=== PATIENT | female | born 1995 | race African-American/Black ===

== ENCOUNTER 2023-01-30 02:50 | Inpatient (IN) | payer OTHER ==
[2023-01-30] MEDS ORDERED: Nitroglycerin 2% Ointment 1 INCH/1 GM Packet ONE (03:14)
[2023-01-30] MEDS ORDERED: Nitroglycerin 50 MG/250 ML BOT 250 ML ONE (04:54)
[2023-01-30 05:07] LABS: Anion Gap 17 mmol/L (10-20); BUN (Urea Nitrogen) 32 mg/dL (7.0-18.7); Calc. Creatinine Clearance 0 mL/min (70-130); Calcium 7.2 mg/dL (7.8-10.44); Carbon Dioxide 23 mmol/L (22-29); Chloride 107 mmol/L (98-107); Estimated GFR 16; Glucose 188 mg/dL (70-105); Magnesium 1.6 mg/dL (1.6-2.6); Sodium 145 mmol/L (136-145)
[2023-01-30] MEDS ORDERED: Magnesium 2 GM/50 ML BAG (IN WATER) ONE (05:15)
[2023-01-30 05:33] LABS: Troponin I 0.773 ng/mL (< 0.028)
[2023-01-30 05:34] LABS: Potassium 2.2 mmol/L (3.5-5.1)
[2023-01-30] MEDS ORDERED: Potassium Chloride 20 MEQ/100 ML PREMIX BAG ONE (06:21)
[2023-01-30] MEDS ORDERED: Acetaminophen 325 MG TAB PO PRN (06:30)
[2023-01-30] MEDS ORDERED: Ondansetron PF 4 MG/2 ML Vial IVP PRN (06:30)
[2023-01-30] MEDS ORDERED: Potassium Chloride 20 MEQ TAB ONE (06:40)
[2023-01-30 06:45] LABS: #Basophils 0.1 thou/uL (0.0-0.2); #Monocytes 1.1 thou/uL (0.11-0.59); #Neutrophils 11.3 thou/uL (1.40-6.50); %Basophils 0.4 % (0.0-1.0); %Lymphocytes 10.7 % (21.0-51.0); %Neutrophils 80.5 % (42.0-75.0); Hematocrit 24.2 % (36.0-47.0); Hemoglobin 7.7 g/dL (12.0-16.0); Mean Corpuscular HGB CONC 31.8 g/dL (32.0-36.0); Mean Corpuscular Hemoglobin 26.7 pg (27.0-31.0); Mean Platelet Volume 9.8 fL (7.4-10.4); Platelet Count 472 10x3/uL (130-400); Red Blood Cell (RBC) Count 2.88 mill/uL (4.20-5.40)
[2023-01-30 07:24] LABS: Hemoglobin A1c 5.9 % (4.0-6.0)
[2023-01-30] MEDS ORDERED: Nitroglycerin 50 MG/250 ML BOT 250 ML IVPB SCH (07:30)
[2023-01-30 07:49] LABS: Cardiac Risk 7.5 (Less than 4.5)
[2023-01-30] MEDS ORDERED: niCARdipine 25 MG in Sodium Chloride 0.9% 250 ML 250 ML IVPB SCH (09:00)
[2023-01-30] MEDS ORDERED: NIFEdipine XL 60 MG ER.TAB PO SCH (09:00)
[2023-01-30 09:06] LABS: Amphetamine Not Detected (NotDetected); Barbiturates Screen Not Detected (NotDetected); Benzodiazepine Screen Not Detected (NotDetected); Cocaine Metabolite Screen Not Detected (NotDetected); Methadone Not Detected (NotDetected); Methamphetamine Not Detected (NotDetected); Opiate Screen Not Detected (NotDetected); Oxycodone Screen Not Detected (NotDetected); Phencyclidine (PCP) Not Detected (NotDetected); THC/Cannabinoid Screen Not Detected (NotDetected); Tricyclic Screen Not Detected (NotDetected)
[2023-01-30] MEDS ORDERED: FLU VACC QS2023-24(6MOS UP)/PF 60 MCG/0.5 ML SYRINGE IM ONE (09:45)
[2023-01-30 09:48] LABS: INR-International Normal Ratio 1.2; PTT 42.8 sec (22.9-36.1); Prothrombin Time 16.1 sec (12.0-14.7)
[2023-01-30 09:56] LABS: Iron 12 ug/dL (50-170); Iron Binding Capacity, Total 150 mcg/dL (265-497)
[2023-01-30 09:58] LABS: Complement-C4 43.1 mg/dL (15-57)
[2023-01-30 10:10] LABS: Troponin I 1.559 ng/mL (< 0.028)
[2023-01-30] MEDS ORDERED: Carvedilol 6.25 MG TAB PO SCH ×2 (10:30→17:00)
[2023-01-30 10:34] LABS: Creatinine, Urine 38.92 mg/dL (47-110)
[2023-01-30 11:07] LABS: Reference Lab Name LABCORP
[2023-01-30 11:08] LABS: Ref Lab Test Ordered ESR
[2023-01-30 11:16] LABS: Anion Gap 19 mmol/L (10-20); BUN (Urea Nitrogen) 33 mg/dL (7.0-18.7); Calc. Creatinine Clearance 37 mL/min (70-130); Carbon Dioxide 20 mmol/L (22-29); Chloride 107 mmol/L (98-107); Estimated GFR 16; Glucose 185 mg/dL (70-105); Sodium 144 mmol/L (136-145)
[2023-01-30 11:24] LABS: Calcium 6.9 mg/dL (7.8-10.44); Potassium 2.3 mmol/L (3.5-5.1)
[2023-01-30] MEDS ORDERED: Potassium Chloride 20 MEQ TAB PO SCH ×2 (11:45→17:00)
[2023-01-30 11:48] LABS: ANA Symphony (Qualitative) Negative (Negative); ANA Symphony (Quantitative) 0.4 Ratio (< 0.7 Negative); Mitochondrial Ab 2.6 U/mL (<4 Negative); Thyroid Peroxidase IgG Ab Less than 4.0 IU/mL (<25 Normal); dsDNA IgG Antibody 0.6 IU/mL (<10 Negative)
[2023-01-30] MEDS: Potassium Chloride 20 MEQ in Premix Bag 1 BAG IVPB SCH ×3 (11:56→17:27)
[2023-01-30 11:59] LABS: Free T4 (Free Thyroxine) 1.02 ng/dL (0.70-1.48); Thyroid Stimulating Hormone 3.3401 uIU/mL (0.35-4.94)
[2023-01-30 12:37] LABS: Troponin I 1.324 ng/mL (< 0.028)
[2023-01-30] MEDS ORDERED: Spironolactone 100 MG TAB PO SCH (12:45)
[2023-01-30] MEDS ORDERED: Magnesium 2 GM/50 ML(in water) 2 GM in Premix Bag 1 BAG IVPB SCH (13:00)
[2023-01-30] MEDS ORDERED: Glucagon 1 MG/ML KIT IM PRN (13:01)
[2023-01-30] MEDS ORDERED: HumaLOG 300 UNITS/3 ML VIAL SC PRN (13:01)
[2023-01-30] MEDS ORDERED: Dextrose 5% in Water 1,000 ML IV PRN (13:01)
[2023-01-30] MEDS ORDERED: Dextrose 50% Abboject 50 ML SYRINGE SLOW IVP PRN (13:01)
[2023-01-30 13:10] LABS: ALT (SGPT) 33 U/L (8-55); AST (SGOT) 48 U/L (5-34); Alkaline Phosphatase 112 U/L (40-110); Magnesium 1.8 mg/dL (1.6-2.6)
[2023-01-30 13:29] LABS: Phosphorus 5.5 mg/dL (2.3-4.7)
[2023-01-30] MEDS ORDERED: Furosemide 40 MG/4 ML VIAL SLOW IVP SCH ×2 (14:00→17:20)
[2023-01-30] MEDS ORDERED: Polyethylene Glycol 3350 17 GM Packet PO PRN (16:11)
[2023-01-30 16:27] LABS: Hematocrit 20.1 % (36.0-47.0); Hemoglobin 6.5 g/dL (12.0-16.0)
[2023-01-30] MEDS: Docusate 100 MG CAP PO PRN (16:35)
[2023-01-30 16:50] LABS: Anion Gap 14 mmol/L (10-20); BUN (Urea Nitrogen) 34 mg/dL (7.0-18.7); Calc. Creatinine Clearance 36 mL/min (70-130); Carbon Dioxide 23 mmol/L (22-29); Chloride 108 mmol/L (98-107); Estimated GFR 16; Glucose 182 mg/dL (70-105); Phosphorus 5.4 mg/dL (2.3-4.7); Sodium 142 mmol/L (136-145)
[2023-01-30 16:54] LABS: Calcium 6.8 mg/dL (7.8-10.44)
[2023-01-30] MEDS ORDERED: Potassium Chloride 20 MEQ in Premix Bag 1 BAG IVPB SCH (17:00)
[2023-01-30] MEDS ORDERED: Metolazone 5 MG TAB PO SCH (17:30)
[2023-01-30] MEDS: Furosemide 100 MG, Admixture Fee 1 EACH in Sodium Chloride 0.9% 90 ML IVPB SCH (18:57)
[2023-01-30] MEDS: Albumin 25% 25 GM/100 ML BOT IVPB SCH (18:57)
[2023-01-30] MEDS: Potassium Chloride 20 MEQ TAB PO SCH (21:30)
[2023-01-30] MEDS: Heparin 5,000 UNITS/ML VIAL SC SCH (21:31)
[2023-01-30] MEDS: Insulin Glargine 30 UNITS/0.3 ML VIAL SC SCH (21:48)
[2023-01-31] MEDS: Potassium Chloride 20 MEQ TAB PO SCH ×6 (00:38→20:33)
[2023-01-31] MEDS: Albumin 25% 25 GM/100 ML BOT IVPB SCH ×3 (00:38→11:03)
[2023-01-31 01:22] LABS: #Basophils 0.1 thou/uL (0.0-0.2); #Monocytes 1.3 thou/uL (0.11-0.59); #Neutrophils 9.7 thou/uL (1.40-6.50); %Basophils 0.4 % (0.0-1.0); %Eosinophils 0.1 % (0.0-10.0); %Lymphocytes 16.8 % (21.0-51.0); %Monocytes 9.8 % (0.0-10.0); %Neutrophils 72.4 % (42.0-75.0); Hematocrit 21.8 % (36.0-47.0); Hemoglobin 7.2 g/dL (12.0-16.0); Mean Corpuscular Hemoglobin 26.6 pg (27.0-31.0); Mean Platelet Volume 9.5 fL (7.4-10.4); Platelet Count 345 10x3/uL (130-400); RBC Distribution Width 15.2 % (11.5-14.5); Red Blood Cell (RBC) Count 2.71 mill/uL (4.20-5.40); White Blood Cell (WBC) Count 13.3 10x3/uL (4.8-10.8)
[2023-01-31 01:46] LABS: Mean Corpuscular Volume 80.4 fl (78.0-98.0)
[2023-01-31 06:17] LABS: #Basophils 0.1 thou/uL (0.0-0.2); #Monocytes 1.4 thou/uL (0.11-0.59); #Neutrophils 9.5 thou/uL (1.40-6.50); %Basophils 0.4 % (0.0-1.0); %Eosinophils 0.1 % (0.0-10.0); %Lymphocytes 19.4 % (21.0-51.0); %Monocytes 9.9 % (0.0-10.0); %Neutrophils 69.8 % (42.0-75.0); Hemoglobin 7.2 g/dL (12.0-16.0); Mean Corpuscular HGB CONC 32.7 g/dL (32.0-36.0); Mean Corpuscular Hemoglobin 26.5 pg (27.0-31.0); Mean Corpuscular Volume 80.9 fl (78.0-98.0); Mean Platelet Volume 9.9 fL (7.4-10.4); Platelet Count 349 10x3/uL (130-400); RBC Distribution Width 15.7 % (11.5-14.5); Red Blood Cell (RBC) Count 2.72 mill/uL (4.20-5.40); White Blood Cell (WBC) Count 13.6 10x3/uL (4.8-10.8)
[2023-01-31 06:37] LABS: INR-International Normal Ratio 1.3; PTT 32.6 sec (22.9-36.1)
[2023-01-31 06:41] LABS: ALT (SGPT) 85 U/L (8-55); AST (SGOT) 139 U/L (5-34); Albumin 3.2 g/dL (3.5-5.0); Alkaline Phosphatase 93 U/L (40-110); Anion Gap 14 mmol/L (10-20); BUN (Urea Nitrogen) 37 mg/dL (7.0-18.7); Bilirubin, Total 0.6 mg/dL (0.2-1.2); Calc. Creatinine Clearance 34 mL/min (70-130); Calcium 7.5 mg/dL (7.8-10.44); Carbon Dioxide 25 mmol/L (22-29); Chloride 109 mmol/L (98-107); Estimated GFR 15; Globulin 2.6 g/dL (2.4-3.5); Glucose 155 mg/dL (70-105); Magnesium 2.1 mg/dL (1.6-2.6); Potassium 3.2 mmol/L (3.5-5.1); Protein, Total 5.8 g/dL (6.0-8.3); Sodium 145 mmol/L (136-145)
[2023-01-31 06:43] LABS: Phosphorus 5.7 mg/dL (2.3-4.7)
[2023-01-31] MEDS ORDERED: NIFEdipine XL 60 MG ER.TAB PO SCH ×2 (07:39→09:00)
[2023-01-31] MEDS ORDERED: Carvedilol 6.25 MG TAB PO SCH (08:00)
[2023-01-31] MEDS: Calcitriol 0.25 MCG CAP PO SCH (09:29)
[2023-01-31] MEDS: Spironolactone 100 MG TAB PO SCH (09:30)
[2023-01-31] MEDS: Heparin 5,000 UNITS/ML VIAL SC SCH ×2 (09:31→20:31)
[2023-01-31] MEDS: Carvedilol 25 MG TAB PO SCH ×2 (09:31→20:32)
[2023-01-31] MEDS: Iron, Sodium Ferric Gluconate 250 MG in Sodium Chloride 0.9% 250 ML 250 ML IVPB SCH (09:48)
[2023-01-31] MEDS: Furosemide 100 MG, Admixture Fee 1 EACH in Sodium Chloride 0.9% 90 ML IVPB SCH (09:49)
[2023-01-31] MEDS ORDERED: niCARdipine 50 MG, Admixture Fee 1 EACH in Sodium Chloride 0.9% 250 ML 230 ML IV SCH (10:00)
[2023-01-31] MEDS ORDERED: Pantoprazole 40 MG VIAL IVP SCH (10:15)
[2023-01-31] MEDS: Ergocalciferol 1.25 MG(50,000 UNITS) CAP PO SCH (11:03)
[2023-01-31] MEDS ORDERED: Heparin 10,000 UNITS/ 10 ML VIAL ONE (11:47)
[2023-01-31 14:24] LABS: Bacteria/HPF None Seen HPF (None Seen); Bilirubin Negative (Negative); Blood, Urine 3+ (Negative); Clarity Clear (Clear); Glucose, Urine (Dipstick) 100 mg/dL (Negative); Ketone, Urine Negative (Negative); Leukocyte Negative Leu/uL (Negative); Nitrite Negative (Negative); Protein, Urine (Dipstick) 300 mg/dL (Neg-Trace); Specific Gravity, Urine 1.013 (1.002-1.036); Squamous Epithelial 0-3 HPF (0-3); Urobilinogen Normal mg/dL (Less than 2)
[2023-01-31 14:47] LABS: HBSAB Concentration Less than 8.00 mIU/mL; HBSAg Index 0.32 S/CO (0-0.99); Hep B Core Total Ab Non-Reactive (NonReactive); Hep B Core Total Index 0.09 S/CO (0-0.79); Hep B Surf AB Non-Reactive (NonReactive); Hep B Surf Ag Non-Reactive S/CO (NonReactive); Hep C IgG Ab Non-Reactive S/CO (NonReactive); Hep C Index 0.08 S/CO (0-0.79)
[2023-01-31 14:51] LABS: 24 Hr Creatinine 648.56 mg/24 hr (710-1650); Creatinine, Urine 58.96 mg/dL (47-110)
[2023-01-31] MEDS ORDERED: Furosemide 100 MG, Admixture Fee 1 EACH in Sodium Chloride 0.9% 90 ML IVPB SCH (14:58)
[2023-01-31] MEDS ORDERED: Metolazone 5 MG TAB PO SCH (15:00)
[2023-01-31] MEDS: Insulin Glargine 30 UNITS/0.3 ML VIAL SC SCH (20:31)
[2023-02-01 04:34] LABS: %Basophils 0.3 % (0.0-1.0); %Eosinophils 0.1 % (0.0-10.0); %Lymphocytes 18.2 % (21.0-51.0); %Monocytes 7.9 % (0.0-10.0); %Neutrophils 72.9 % (42.0-75.0); Hematocrit 19.8 % (36.0-47.0); Hemoglobin 6.4 g/dL (12.0-16.0); Mean Corpuscular HGB CONC 32.3 g/dL (32.0-36.0); Mean Corpuscular Hemoglobin 26.6 pg (27.0-31.0); Mean Corpuscular Volume 82.2 fl (78.0-98.0); Mean Platelet Volume 9.8 fL (7.4-10.4); Platelet Count 332 10x3/uL (130-400); RBC Distribution Width 15.5 % (11.5-14.5); Red Blood Cell (RBC) Count 2.41 mill/uL (4.20-5.40); White Blood Cell (WBC) Count 12.3 10x3/uL (4.8-10.8)
[2023-02-01 05:02] LABS: ALT (SGPT) 54 U/L (8-55); AST (SGOT) 50 U/L (5-34); Albumin 2.5 g/dL (3.5-5.0); Alkaline Phosphatase 101 U/L (40-110); Anion Gap 13 mmol/L (10-20); BUN (Urea Nitrogen) 27 mg/dL (7.0-18.7); Bilirubin, Total 0.5 mg/dL (0.2-1.2); Calc. Creatinine Clearance 44 mL/min (70-130); Calcium 8.1 mg/dL (7.8-10.44); Carbon Dioxide 27 mmol/L (22-29); Chloride 109 mmol/L (98-107); Estimated GFR 20; Globulin 2.7 g/dL (2.4-3.5); Glucose 107 mg/dL (70-105); Magnesium 2.1 mg/dL (1.6-2.6); Potassium 3.5 mmol/L (3.5-5.1); Protein, Total 5.2 g/dL (6.0-8.3); Sodium 145 mmol/L (136-145)
[2023-02-01] MEDS ORDERED: Albumin 25% 25 GM/100 ML BOT IVPB SCH ×2 (07:15→23:45)
[2023-02-01] MEDS: Pantoprazole 40 MG VIAL IVP SCH (08:10)
[2023-02-01] MEDS: Heparin 5,000 UNITS/ML VIAL SC SCH ×2 (08:10→20:51)
[2023-02-01] MEDS ORDERED: Metolazone 5 MG TAB PO SCH (08:30)
[2023-02-01] MEDS: Iron, Sodium Ferric Gluconate 250 MG in Sodium Chloride 0.9% 250 ML 250 ML IVPB SCH (08:53)
[2023-02-01] MEDS ORDERED: Torsemide 100 MG TAB PO SCH (09:00)
[2023-02-01] MEDS: Carvedilol 25 MG TAB PO SCH ×3 (10:12→17:28)
[2023-02-01] MEDS: Calcitriol 0.25 MCG CAP PO SCH (10:12)
[2023-02-01] MEDS: Spironolactone 100 MG TAB PO SCH (10:13)
[2023-02-01] MEDS ORDERED: Heparin 10,000 UNITS/ 10 ML VIAL ONE (10:45)
[2023-02-01 10:54] LABS: #Neutrophils 9.3 thou/uL (1.40-6.50); %Basophils 0.3 % (0.0-1.0); %Eosinophils 0.3 % (0.0-10.0); %Lymphocytes 16.1 % (21.0-51.0); %Monocytes 8.1 % (0.0-10.0); %Neutrophils 74.7 % (42.0-75.0); Hematocrit 27.8 % (36.0-47.0); Hemoglobin 9.3 g/dL (12.0-16.0); Mean Corpuscular HGB CONC 33.5 g/dL (32.0-36.0); Mean Corpuscular Hemoglobin 27.8 pg (27.0-31.0); Mean Platelet Volume 9.6 fL (7.4-10.4); Platelet Count 337 10x3/uL (130-400); RBC Distribution Width 14.8 % (11.5-14.5); Red Blood Cell (RBC) Count 3.35 mill/uL (4.20-5.40); White Blood Cell (WBC) Count 12.5 10x3/uL (4.8-10.8)
[2023-02-01] MEDS ORDERED: NIFEdipine XL 60 MG ER.TAB PO SCH (16:15)
[2023-02-01] MEDS: Atorvastatin Calcium 20 MG TAB PO SCH (20:51)
[2023-02-01] MEDS: Insulin Glargine 30 UNITS/0.3 ML VIAL SC SCH (21:36)
[2023-02-02 00:23] LABS: Actual Bicarbonate (HCO3a) 24.1 mEq/L (22-28); Base Excess (BEa) -0.2 mEq/L (-2.0 to +3.0); CO2 Tension 37.9 mmHg (35.0-45.0); Calcium, Ionized (arterial) 1.15 mmol/L (1.12-1.30); Carboxyhemoglobin (COHb) 0.9 gm% (0.0-3.0); Hematocrit-ABG 29 % (36.0-47.0); pH, Arterial 7.421 (7.35-7.45)
[2023-02-02 00:25] LABS: ALV-art Gradient 100.265 mmHg (0-20); Puncture Site RRA
[2023-02-02 00:32] LABS: Hematocrit 26.6 % (36.0-47.0); Hemoglobin 8.8 g/dL (12.0-16.0)
[2023-02-02 00:34] LABS: Hematocrit 26.4 % (36.0-47.0); Hemoglobin 8.7 g/dL (12.0-16.0); Mean Corpuscular Hemoglobin 27.4 pg (27.0-31.0); Mean Corpuscular Volume 83.3 fl (78.0-98.0); Mean Platelet Volume 10.5 fL (7.4-10.4); Platelet Count 313 10x3/uL (130-400); RBC Distribution Width 14.8 % (11.5-14.5); Red Blood Cell (RBC) Count 3.17 mill/uL (4.20-5.40); White Blood Cell (WBC) Count 10.6 10x3/uL (4.8-10.8)
[2023-02-02 00:36] LABS: Delete Auto Diff?? YES; Manual Diff?? YES
[2023-02-02] MEDS ORDERED: Sodium Chloride 0.9% 500 ML IV SCH ×2 (00:45→08:15)
[2023-02-02 00:56] LABS: CellaVision Operator ID LAB.CLH1; Lymphocytes 5 % (21-51); Monocytes 3 % (0-10); Neutrophil 92 % (42-75); Nucleated RBC (Manual Ct) 4 % (0); Platelet Adequacy Comment Platelets Normal; Polychromasia SLIGHT = 2-3 cells HPF (0-2); Target Cells SLIGHT = 2-5 cells HPF (0-1); Total Cell Count 100
[2023-02-02 01:02] LABS: ALT (SGPT) 48 U/L (8-55); AST (SGOT) 42 U/L (5-34); Alkaline Phosphatase 138 U/L (40-110); Anion Gap 13 mmol/L (10-20); BUN (Urea Nitrogen) 23 mg/dL (7.0-18.7); Bilirubin, Total 0.8 mg/dL (0.2-1.2); Calc. Creatinine Clearance 44 mL/min (70-130); Calcium 8.5 mg/dL (7.8-10.44); Carbon Dioxide 27 mmol/L (22-29); Chloride 107 mmol/L (98-107); Estimated GFR 20; Globulin 2.7 g/dL (2.4-3.5); Glucose 141 mg/dL (70-105); Potassium 3.6 mmol/L (3.5-5.1); Protein, Total 5.7 g/dL (6.0-8.3); Sodium 143 mmol/L (136-145)
[2023-02-02] MEDS ORDERED: NOREPINEPHRINE 8 MG/250 ML-D5W 250 ML ONE (01:12)
[2023-02-02] MEDS ORDERED: NOREPINEPHRINE 8 MG/250 ML-D5W 250 ML IVPB SCH (01:15)
[2023-02-02 01:37] LABS: Lactic Acid 0.9 mmol/L (0.5-2.2)
[2023-02-02] MEDS ORDERED: Carvedilol 25 MG TAB PO SCH ×2 (01:50→02:10)
[2023-02-02 03:18] LABS: Protein, Total 6.2 g/dL (6.0-8.3)
[2023-02-02 03:19] LABS: ALT (SGPT) 74 U/L (8-55); AST (SGOT) 103 U/L (5-34); Albumin 3.1 g/dL (3.5-5.0); Alkaline Phosphatase 295 U/L (40-110); Anion Gap 15 mmol/L (10-20); BUN (Urea Nitrogen) 24 mg/dL (7.0-18.7); Bilirubin, Total 1.2 mg/dL (0.2-1.2); Calc. Creatinine Clearance 43 mL/min (70-130); Calcium 8.7 mg/dL (7.8-10.44); Carbon Dioxide 21 mmol/L (22-29); Chloride 108 mmol/L (98-107); Estimated GFR 19; Globulin 3.2 g/dL (2.4-3.5); Glucose 157 mg/dL (70-105); Potassium 3.7 mmol/L (3.5-5.1); Sodium 140 mmol/L (136-145)
[2023-02-02 05:09] LABS: Hematocrit 27.9 % (36.0-47.0); Hemoglobin 9.1 g/dL (12.0-16.0); Mean Corpuscular HGB CONC 32.6 g/dL (32.0-36.0); Mean Corpuscular Hemoglobin 27.4 pg (27.0-31.0); Mean Platelet Volume 10.5 fL (7.4-10.4); Platelet Count 345 10x3/uL (130-400); RBC Distribution Width 14.9 % (11.5-14.5); Red Blood Cell (RBC) Count 3.32 mill/uL (4.20-5.40); White Blood Cell (WBC) Count 11.2 10x3/uL (4.8-10.8)
[2023-02-02 05:19] LABS: Delete Auto Diff?? YES; Manual Diff?? YES
[2023-02-02 05:45] LABS: Band 1 % (5-11); CellaVision Operator ID LAB.CLH1; Hypochromia SLIGHT = 6-15 cells HPF (0-5); Lymphocytes 6 % (21-51); Monocytes 2 % (0-10); Neutrophil 91 % (42-75); Nucleated RBC (Manual Ct) 5 % (0); Platelet Adequacy Comment Platelets Normal; Polychromasia SLIGHT = 2-3 cells HPF (0-2); Total Cell Count 102
[2023-02-02] MEDS: Pantoprazole 40 MG VIAL IVP SCH (09:57)
[2023-02-02] MEDS: Heparin 5,000 UNITS/ML VIAL SC SCH ×2 (09:57→20:55)
[2023-02-02] MEDS: Calcitriol 0.25 MCG CAP PO SCH (09:57)
[2023-02-02] MEDS: Iron, Sodium Ferric Gluconate 250 MG in Sodium Chloride 0.9% 250 ML 250 ML IVPB SCH (10:26)
[2023-02-02] MEDS: Atorvastatin Calcium 20 MG TAB PO SCH (20:55)
[2023-02-02] MEDS: Insulin Glargine 30 UNITS/0.3 ML VIAL SC SCH (20:55)
[2023-02-02] MEDS: Docusate 100 MG CAP PO PRN (20:55)
[2023-02-03 07:29] LABS: #Eosinphils 0.1 thou/uL (0.0-0.7); #Monocytes 0.7 thou/uL (0.11-0.59); #Neutrophils 5.4 thou/uL (1.40-6.50); %Basophils 0.4 % (0.0-1.0); %Eosinophils 1.1 % (0.0-10.0); %Lymphocytes 24.3 % (21.0-51.0); %Monocytes 8.7 % (0.0-10.0); %Neutrophils 64.8 % (42.0-75.0); Hematocrit 25.9 % (36.0-47.0); Hemoglobin 8.2 g/dL (12.0-16.0); Mean Corpuscular HGB CONC 31.7 g/dL (32.0-36.0); Mean Corpuscular Hemoglobin 27.2 pg (27.0-31.0); Mean Platelet Volume 10.6 fL (7.4-10.4); Platelet Count 334 10x3/uL (130-400); Red Blood Cell (RBC) Count 3.01 mill/uL (4.20-5.40); White Blood Cell (WBC) Count 8.3 10x3/uL (4.8-10.8)
[2023-02-03 07:52] LABS: ALT (SGPT) 51 U/L (8-55); AST (SGOT) 39 U/L (5-34); Albumin 2.5 g/dL (3.5-5.0); Alkaline Phosphatase 207 U/L (40-110); Anion Gap 12 mmol/L (10-20); BUN (Urea Nitrogen) 31 mg/dL (7.0-18.7); Bilirubin, Total 0.3 mg/dL (0.2-1.2); Calc. Creatinine Clearance 34 mL/min (70-130); Calcium 7.6 mg/dL (7.8-10.44); Carbon Dioxide 25 mmol/L (22-29); Chloride 110 mmol/L (98-107); Estimated GFR 16; Globulin 2.9 g/dL (2.4-3.5); Glucose 125 mg/dL (70-105); Potassium 2.9 mmol/L (3.5-5.1); Protein, Total 5.4 g/dL (6.0-8.3); Sodium 144 mmol/L (136-145)
[2023-02-03] MEDS ORDERED: Spironolactone 100 MG TAB PO SCH (08:45)
[2023-02-03] MEDS: Heparin 5,000 UNITS/ML VIAL SC SCH ×2 (08:57→22:50)
[2023-02-03] MEDS: Metoprolol Tartrate 25 MG TAB PO SCH ×2 (08:57→22:51)
[2023-02-03] MEDS: Calcitriol 0.25 MCG CAP PO SCH (08:58)
[2023-02-03] MEDS: Potassium Chloride 20 MEQ TAB PO SCH ×3 (08:58→17:10)
[2023-02-03] MEDS: Docusate 100 MG CAP PO PRN (09:12)
[2023-02-03] MEDS ORDERED: Iron, Sodium Ferric Gluconate 250 MG in Sodium Chloride 0.9% 250 ML 250 ML IVPB SCH (09:15)
[2023-02-03] MEDS ORDERED: Metolazone 5 MG TAB PO SCH (10:15)
[2023-02-03] MEDS ORDERED: Torsemide 100 MG TAB PO SCH (10:15)
[2023-02-03] MEDS: Iron, Sodium Ferric Gluconate 250 MG in Sodium Chloride 0.9% 250 ML 250 ML IVPB SCH (10:34)
[2023-02-03] MEDS ORDERED: niCARdipine 25 MG in Sodium Chloride 0.9% 250 ML 250 ML IVPB SCH (14:45)
[2023-02-03] MEDS: niCARdipine 50 MG, Admixture Fee 1 EACH in Sodium Chloride 0.9% 250 ML 230 ML IV SCH (16:01)
[2023-02-03] MEDS ORDERED: Amlodipine 10 MG TAB PO SCH (16:45)
[2023-02-03 16:49] LABS: Albumin 2.9 g/dL (3.5-5.0); Anion Gap 12 mmol/L (10-20); BUN (Urea Nitrogen) 35 mg/dL (7.0-18.7); BUN/Creatinine Ratio 8.35; Calc. Creatinine Clearance 31 mL/min (70-130); Calcium 8.4 mg/dL (7.8-10.44); Carbon Dioxide 28 mmol/L (22-29); Chloride 105 mmol/L (98-107); Estimated GFR 14; Glucose 174 mg/dL (70-105); Phosphorus 4.2 mg/dL (2.3-4.7); Potassium 3.5 mmol/L (3.5-5.1); Sodium 141 mmol/L (136-145)
[2023-02-03] MEDS: Atorvastatin Calcium 20 MG TAB PO SCH (22:50)
[2023-02-03] MEDS: Insulin Glargine 30 UNITS/0.3 ML VIAL SC SCH (22:50)
[2023-02-04 05:04] LABS: #Basophils 0.1 thou/uL (0.0-0.2); #Eosinphils 0.1 thou/uL (0.0-0.7); #Monocytes 0.9 thou/uL (0.11-0.59); #Neutrophils 5.8 thou/uL (1.40-6.50); %Basophils 0.6 % (0.0-1.0); %Eosinophils 0.9 % (0.0-10.0); %Lymphocytes 20.4 % (21.0-51.0); %Monocytes 10.1 % (0.0-10.0); %Neutrophils 67.4 % (42.0-75.0); Hemoglobin 9.3 g/dL (12.0-16.0); Mean Corpuscular HGB CONC 32.1 g/dL (32.0-36.0); Mean Corpuscular Hemoglobin 27.2 pg (27.0-31.0); Mean Corpuscular Volume 84.8 fl (78.0-98.0); Mean Platelet Volume 10.3 fL (7.4-10.4); Platelet Count 347 10x3/uL (130-400); RBC Distribution Width 14.7 % (11.5-14.5); Red Blood Cell (RBC) Count 3.42 mill/uL (4.20-5.40); White Blood Cell (WBC) Count 8.6 10x3/uL (4.8-10.8)
[2023-02-04 05:31] LABS: ALT (SGPT) 44 U/L (8-55); AST (SGOT) 29 U/L (5-34); Albumin 2.8 g/dL (3.5-5.0); Alkaline Phosphatase 205 U/L (40-110); Anion Gap 12 mmol/L (10-20); BUN (Urea Nitrogen) 37 mg/dL (7.0-18.7); Bilirubin, Total 0.3 mg/dL (0.2-1.2); Calc. Creatinine Clearance 32 mL/min (70-130); Calcium 8.5 mg/dL (7.8-10.44); Carbon Dioxide 27 mmol/L (22-29); Chloride 107 mmol/L (98-107); Estimated GFR 15; Globulin 3.1 g/dL (2.4-3.5); Glucose 112 mg/dL (70-105); Potassium 3.4 mmol/L (3.5-5.1); Protein, Total 5.9 g/dL (6.0-8.3); Sodium 143 mmol/L (136-145)
[2023-02-04] MEDS ORDERED: Potassium Chloride 20 MEQ TAB PO SCH (06:45)
[2023-02-04] MEDS ORDERED: Spironolactone 100 MG TAB PO SCH (08:00)
[2023-02-04] MEDS: Metoprolol Tartrate 25 MG TAB PO SCH ×2 (08:15→22:53)
[2023-02-04] MEDS: Calcitriol 0.25 MCG CAP PO SCH (08:15)
[2023-02-04] MEDS: Spironolactone 100 MG TAB PO SCH (08:15)
[2023-02-04] MEDS: Torsemide 100 MG TAB PO SCH (08:16)
[2023-02-04] MEDS: Heparin 5,000 UNITS/ML VIAL SC SCH ×2 (08:16→22:53)
[2023-02-04] MEDS: Metolazone 5 MG TAB PO SCH (08:17)
[2023-02-04] MEDS ORDERED: Amlodipine 5 MG TAB PO SCH (09:00)
[2023-02-04] MEDS ORDERED: Amlodipine 10 MG TAB PO SCH (09:00)
[2023-02-04] MEDS ORDERED: Heparin 10,000 UNITS/ 10 ML VIAL ONE (11:05)
[2023-02-04] MEDS: niCARdipine 50 MG, Admixture Fee 1 EACH in Sodium Chloride 0.9% 250 ML 230 ML IV SCH (11:20)
[2023-02-04] MEDS ORDERED: Activase 2 MG VIAL CATH SCH ×2 (17:30)
[2023-02-04] MEDS ORDERED: Sterile Water 10 ML VIAL IVP SCH ×2 (17:30)
[2023-02-04] MEDS: Albumin 25% 25 GM/100 ML BOT IVPB PRN ×2 (18:45→19:45)
[2023-02-04] MEDS: Insulin Glargine 30 UNITS/0.3 ML VIAL SC SCH (22:51)
[2023-02-04] MEDS: Atorvastatin Calcium 20 MG TAB PO SCH (22:53)
[2023-02-05 04:12] LABS: #Basophils 0.1 thou/uL (0.0-0.2); #Eosinphils 0.1 thou/uL (0.0-0.7); #Monocytes 1.1 thou/uL (0.11-0.59); #Neutrophils 7.3 thou/uL (1.40-6.50); %Basophils 0.5 % (0.0-1.0); %Eosinophils 1.3 % (0.0-10.0); %Lymphocytes 18.9 % (21.0-51.0); %Monocytes 10.2 % (0.0-10.0); %Neutrophils 68.7 % (42.0-75.0); Hematocrit 28.6 % (36.0-47.0); Hemoglobin 9.1 g/dL (12.0-16.0); Mean Corpuscular HGB CONC 31.8 g/dL (32.0-36.0); Mean Corpuscular Hemoglobin 26.9 pg (27.0-31.0); Mean Corpuscular Volume 84.6 fl (78.0-98.0); Mean Platelet Volume 9.8 fL (7.4-10.4); Platelet Count 289 10x3/uL (130-400); RBC Distribution Width 14.9 % (11.5-14.5); Red Blood Cell (RBC) Count 3.38 mill/uL (4.20-5.40); White Blood Cell (WBC) Count 10.6 10x3/uL (4.8-10.8)
[2023-02-05 04:33] LABS: ALT (SGPT) 30 U/L (8-55); AST (SGOT) 24 U/L (5-34); Albumin 3.4 g/dL (3.5-5.0); Alkaline Phosphatase 165 U/L (40-110); Anion Gap 13 mmol/L (10-20); BUN (Urea Nitrogen) 23 mg/dL (7.0-18.7); Bilirubin, Total 0.5 mg/dL (0.2-1.2); Calc. Creatinine Clearance 41 mL/min (70-130); Carbon Dioxide 29 mmol/L (22-29); Chloride 104 mmol/L (98-107); Estimated GFR 20; Glucose 100 mg/dL (70-105); Potassium 3.6 mmol/L (3.5-5.1); Protein, Total 6.4 g/dL (6.0-8.3); Sodium 142 mmol/L (136-145)
[2023-02-05] MEDS ORDERED: Heparin 10,000 UNITS/ 10 ML VIAL ONE (08:24)
[2023-02-05] MEDS ORDERED: Amlodipine 10 MG TAB PO SCH (09:00)
[2023-02-05] MEDS: Calcitriol 0.25 MCG CAP PO SCH (09:16)
[2023-02-05] MEDS: Spironolactone 100 MG TAB PO SCH (09:16)
[2023-02-05] MEDS: Metolazone 5 MG TAB PO SCH (09:16)
[2023-02-05] MEDS: Heparin 5,000 UNITS/ML VIAL SC SCH (09:17)
[2023-02-05] MEDS: Metoprolol Tartrate 25 MG TAB PO SCH (09:17)
[2023-02-05] MEDS: Torsemide 100 MG TAB PO SCH (10:26)
[2023-02-05] MEDS: Ondansetron PF 4 MG/2 ML Vial IVP PRN (13:27)
[2023-02-05] MEDS ORDERED: Labetalol HCl 100 MG/20 ML VIAL SLOW IVP PRN (13:36)
[2023-02-05] MEDS ORDERED: Promethazine HCl 25 MG/ML VIAL IM PRN (13:37)
[2023-02-05] MEDS: Benzonatate 100 MG CAP PO PRN (20:52)
[2023-02-06] MEDS: Heparin 5,000 UNITS/ML VIAL SC SCH ×3 (00:33→21:47)
[2023-02-06] MEDS: Benzonatate 100 MG CAP PO PRN ×2 (00:33→21:47)
[2023-02-06] MEDS: Atorvastatin Calcium 20 MG TAB PO SCH ×2 (00:33→21:47)
[2023-02-06] MEDS: Metoprolol Tartrate 25 MG TAB PO SCH (00:33)
[2023-02-06] MEDS: Insulin Glargine 30 UNITS/0.3 ML VIAL SC SCH ×2 (00:34→22:06)
[2023-02-06 05:00] LABS: #Eosinphils 0.1 thou/uL (0.0-0.7); #Monocytes 1.3 thou/uL (0.11-0.59); #Neutrophils 6.6 thou/uL (1.40-6.50); %Basophils 0.3 % (0.0-1.0); %Eosinophils 1.2 % (0.0-10.0); %Lymphocytes 23.6 % (21.0-51.0); %Monocytes 12.4 % (0.0-10.0); Hematocrit 28.2 % (36.0-47.0); Hemoglobin 9.2 g/dL (12.0-16.0); Mean Corpuscular HGB CONC 32.6 g/dL (32.0-36.0); Mean Corpuscular Hemoglobin 27.4 pg (27.0-31.0); Mean Corpuscular Volume 83.9 fl (78.0-98.0); Platelet Count 298 10x3/uL (130-400); RBC Distribution Width 14.9 % (11.5-14.5); Red Blood Cell (RBC) Count 3.36 mill/uL (4.20-5.40); White Blood Cell (WBC) Count 10.7 10x3/uL (4.8-10.8)
[2023-02-06 05:27] LABS: ALT (SGPT) 25 U/L (8-55); AST (SGOT) 21 U/L (5-34); Albumin 2.9 g/dL (3.5-5.0); Alkaline Phosphatase 144 U/L (40-110); Anion Gap 12 mmol/L (10-20); BUN (Urea Nitrogen) 16 mg/dL (7.0-18.7); Bilirubin, Total 0.4 mg/dL (0.2-1.2); Calc. Creatinine Clearance 47 mL/min (70-130); Calcium 8.6 mg/dL (7.8-10.44); Carbon Dioxide 31 mmol/L (22-29); Chloride 103 mmol/L (98-107); Estimated GFR 25; Globulin 3.1 g/dL (2.4-3.5); Glucose 113 mg/dL (70-105); Potassium 3.5 mmol/L (3.5-5.1); Sodium 142 mmol/L (136-145)
[2023-02-06] MEDS: Metolazone 5 MG TAB PO SCH (08:27)
[2023-02-06] MEDS: Spironolactone 100 MG TAB PO SCH (08:27)
[2023-02-06] MEDS: Calcitriol 0.25 MCG CAP PO SCH (08:48)
[2023-02-06] MEDS: Torsemide 100 MG TAB PO SCH (08:49)
[2023-02-06] MEDS: Metoprolol Tartrate 50 MG TAB PO SCH ×2 (08:49→21:47)
[2023-02-06] MEDS ORDERED: NIFEdipine XL 60 MG ER.TAB PO SCH (09:00)
[2023-02-06] MEDS: Ondansetron PF 4 MG/2 ML Vial IVP PRN (12:41)
[2023-02-06] MEDS ORDERED: Albumin 25% 25 GM/100 ML BOT IVPB SCH (16:15)
[2023-02-07 04:57] LABS: #Eosinphils 0.2 thou/uL (0.0-0.7); #Neutrophils 4.7 thou/uL (1.40-6.50); %Basophils 0.3 % (0.0-1.0); %Eosinophils 1.9 % (0.0-10.0); %Lymphocytes 32.7 % (21.0-51.0); %Monocytes 11.7 % (0.0-10.0); %Neutrophils 53.1 % (42.0-75.0); Hematocrit 27.6 % (36.0-47.0); Hemoglobin 8.7 g/dL (12.0-16.0); Mean Corpuscular HGB CONC 31.5 g/dL (32.0-36.0); Mean Corpuscular Hemoglobin 26.9 pg (27.0-31.0); Mean Corpuscular Volume 85.2 fl (78.0-98.0); Mean Platelet Volume 10.7 fL (7.4-10.4); Platelet Count 294 10x3/uL (130-400); RBC Distribution Width 14.7 % (11.5-14.5); Red Blood Cell (RBC) Count 3.24 mill/uL (4.20-5.40); White Blood Cell (WBC) Count 8.9 10x3/uL (4.8-10.8)
[2023-02-07 06:51] LABS: ALT (SGPT) 22 U/L (8-55); AST (SGOT) 20 U/L (5-34); Albumin 3.1 g/dL (3.5-5.0); Alkaline Phosphatase 126 U/L (40-110); Anion Gap 15 mmol/L (10-20); BUN (Urea Nitrogen) 30 mg/dL (7.0-18.7); Bilirubin, Total 0.3 mg/dL (0.2-1.2); Calc. Creatinine Clearance 29 mL/min (70-130); Calcium 8.9 mg/dL (7.8-10.44); Carbon Dioxide 29 mmol/L (22-29); Chloride 102 mmol/L (98-107); Estimated GFR 16; Globulin 2.9 g/dL (2.4-3.5); Glucose 136 mg/dL (70-105); Potassium 3.6 mmol/L (3.5-5.1); Sodium 142 mmol/L (136-145)
[2023-02-07] MEDS: Torsemide 100 MG TAB PO SCH (08:21)
[2023-02-07] MEDS: Metolazone 5 MG TAB PO SCH (08:21)
[2023-02-07] MEDS: Calcitriol 0.25 MCG CAP PO SCH (08:21)
[2023-02-07] MEDS: Heparin 5,000 UNITS/ML VIAL SC SCH ×2 (08:22→20:15)
[2023-02-07] MEDS: Ergocalciferol 1.25 MG(50,000 UNITS) CAP PO SCH (08:28)
[2023-02-07 08:42] VITALS: BMI 30.6
[2023-02-07] MEDS: Spironolactone 100 MG TAB PO SCH (08:58)
[2023-02-07] MEDS ORDERED: Heparin 10,000 UNITS/ 10 ML VIAL ONE (08:59)
[2023-02-07] MEDS ORDERED: NIFEdipine XL 30 MG ER.TAB PO SCH ×2 (09:00→10:15)
[2023-02-07] MEDS: Benzonatate 100 MG CAP PO PRN (12:34)
[2023-02-07] MEDS: Atorvastatin Calcium 20 MG TAB PO SCH (20:15)
[2023-02-07] MEDS: Insulin Glargine 30 UNITS/0.3 ML VIAL SC SCH (21:21)
[2023-02-08] MEDS ORDERED: Iron, Sodium Ferric Gluconate 250 MG in Sodium Chloride 0.9% 250 ML 250 ML IVPB SCH (06:30)
[2023-02-08 07:48] LABS: #Basophils 0.1 thou/uL (0.0-0.2); #Eosinphils 0.2 thou/uL (0.0-0.7); #Neutrophils 5.5 thou/uL (1.40-6.50); %Basophils 0.5 % (0.0-1.0); %Eosinophils 2.2 % (0.0-10.0); %Lymphocytes 30.3 % (21.0-51.0); %Monocytes 10.5 % (0.0-10.0); %Neutrophils 56.2 % (42.0-75.0); Hematocrit 29.5 % (36.0-47.0); Hemoglobin 9.5 g/dL (12.0-16.0); Mean Corpuscular HGB CONC 32.2 g/dL (32.0-36.0); Mean Corpuscular Hemoglobin 27.5 pg (27.0-31.0); Mean Corpuscular Volume 85.3 fl (78.0-98.0); Mean Platelet Volume 10.2 fL (7.4-10.4); Platelet Count 315 10x3/uL (130-400); RBC Distribution Width 14.7 % (11.5-14.5); Red Blood Cell (RBC) Count 3.46 mill/uL (4.20-5.40); White Blood Cell (WBC) Count 9.7 10x3/uL (4.8-10.8)
[2023-02-08] MEDS ORDERED: Epoetin (ESRD) 10,000 UNITS/ML VIAL SC SCH (08:00)
[2023-02-08 08:23] LABS: Anion Gap 12 mmol/L (10-20); BUN (Urea Nitrogen) 20 mg/dL (7.0-18.7); BUN/Creatinine Ratio 7.09; Calc. Creatinine Clearance 39 mL/min (70-130); Calcium 9.1 mg/dL (7.8-10.44); Carbon Dioxide 29 mmol/L (22-29); Chloride 102 mmol/L (98-107); Estimated GFR 23; Glucose 133 mg/dL (70-105); Potassium 3.3 mmol/L (3.5-5.1); Sodium 140 mmol/L (136-145)
[2023-02-08] MEDS ORDERED: Tuberculin PPD 0.1 ML VIAL I-DERMAL STA (08:46)
[2023-02-08] MEDS: Calcitriol 0.25 MCG CAP PO SCH (09:00)
[2023-02-08] MEDS: NIFEdipine XL 60 MG ER.TAB PO SCH (09:00)
[2023-02-08] MEDS: Metolazone 5 MG TAB PO SCH (09:00)
[2023-02-08] MEDS: Spironolactone 100 MG TAB PO SCH (09:01)
[2023-02-08] MEDS: Heparin 5,000 UNITS/ML VIAL SC SCH ×2 (09:01→21:33)
[2023-02-08] MEDS ORDERED: Tuberculin PPD 0.1 ML VIAL I-DERMAL SCH (09:15)
[2023-02-08] MEDS: Torsemide 100 MG TAB PO SCH (09:18)
[2023-02-08] MEDS: Potassium Chloride 20 MEQ TAB PO SCH (09:24)
[2023-02-08 09:45] LABS: Magnesium 1.8 mg/dL (1.6-2.6)
[2023-02-08] MEDS ORDERED: EPINEPHrine 1 MG/ML AMP ONE (14:08)
[2023-02-08] MEDS ORDERED: Lidocaine 2% PF 5 ML VIAL ONE (14:08)
[2023-02-08] MEDS ORDERED: Bupivacaine 0.25% HCL 30 ML VIAL ONE (14:08)
[2023-02-08] MEDS ORDERED: Heparin 10,000 UNITS/ 10 ML VIAL ONE (14:26)
[2023-02-08] MEDS ORDERED: CEFAZOLIN 2 GM VIAL ONE (14:44)
[2023-02-08] MEDS ORDERED: Sodium Chloride 0.9% 100 ML ONE (14:44)
[2023-02-08] MEDS ORDERED: Lidocaine 1% PF 5 ML VIAL ONE (15:08)
[2023-02-08] MEDS ORDERED: PROPOFOL 200 MG/20 ML VIAL ONE (15:08)
[2023-02-08] MEDS ORDERED: Promethazine HCl 25 MG/ML VIAL IM PRN (16:30)
[2023-02-08] MEDS ORDERED: Ondansetron HCl/PF 4 MG/2 ML Vial IVP PRN (16:30)
[2023-02-08] MEDS ORDERED: HYDROmorphone 0.5 MG/0.5 ML SYRINGE ONE ×2 (17:27→17:50)
[2023-02-08] MEDS: Insulin Glargine 30 UNITS/0.3 ML VIAL SC SCH (21:33)
[2023-02-08] MEDS: Atorvastatin Calcium 20 MG TAB PO SCH (21:33)
[2023-02-08] MEDS: HYDROcodone/Acetaminophen 5/325 mg Tablet PO PRN (23:34)
[2023-02-09] MEDS: NIFEdipine XL 60 MG ER.TAB PO SCH (07:48)
[2023-02-09] MEDS: Spironolactone 100 MG TAB PO SCH (07:49)
[2023-02-09] MEDS: Calcitriol 0.25 MCG CAP PO SCH (07:49)
[2023-02-09] MEDS: Potassium Chloride 20 MEQ TAB PO SCH (07:49)
[2023-02-09] MEDS: Heparin 5,000 UNITS/ML VIAL SC SCH ×2 (07:49→21:35)
[2023-02-09] MEDS: Metolazone 5 MG TAB PO SCH (07:49)
[2023-02-09] MEDS: Torsemide 100 MG TAB PO SCH (07:52)
[2023-02-09] MEDS: HYDROcodone/Acetaminophen 5/325 mg Tablet PO PRN ×2 (08:37→21:33)
[2023-02-09] MEDS ORDERED: Heparin 10,000 UNITS/ 10 ML VIAL ONE (09:01)
[2023-02-09 11:35] LABS: Albumin 3.1 g/dL (3.5-5.0); Anion Gap 14 mmol/L (10-20); BUN (Urea Nitrogen) 25 mg/dL (7.0-18.7); BUN/Creatinine Ratio 6.85; Calc. Creatinine Clearance 31 mL/min (70-130); Calcium 8.9 mg/dL (7.8-10.44); Carbon Dioxide 27 mmol/L (22-29); Chloride 103 mmol/L (98-107); Estimated GFR 17; Glucose 90 mg/dL (70-105); Phosphorus 3.9 mg/dL (2.3-4.7); Potassium 3.6 mmol/L (3.5-5.1); Sodium 140 mmol/L (136-145)
[2023-02-09] MEDS ORDERED: Midazolam HCl 2 mg/2 ml Vial ONE (12:59)
[2023-02-09] MEDS ORDERED: fentaNYL 50 mcg/mL 1 mL Vial ONE (12:59)
[2023-02-09] MEDS ORDERED: Sodium Bicarbonate 2.5 MEQ/5 ML VIAL ONE (12:59)
[2023-02-09] MEDS ORDERED: Morphine 2 MG/ML VIAL ONE (14:31)
[2023-02-09] MEDS: Atorvastatin Calcium 20 MG TAB PO SCH (21:33)
[2023-02-09] MEDS: Insulin Glargine 30 UNITS/0.3 ML VIAL SC SCH (21:37)
[2023-02-10 06:23] LABS: Albumin 3.1 g/dL (3.5-5.0); Anion Gap 13 mmol/L (10-20); BUN (Urea Nitrogen) 21 mg/dL (7.0-18.7); BUN/Creatinine Ratio 6.42; Calc. Creatinine Clearance 32 mL/min (70-130); Calcium 9.4 mg/dL (7.8-10.44); Carbon Dioxide 28 mmol/L (22-29); Chloride 102 mmol/L (98-107); Estimated GFR 19; Glucose 95 mg/dL (70-105); Phosphorus 3.9 mg/dL (2.3-4.7); Potassium 4.1 mmol/L (3.5-5.1); Sodium 139 mmol/L (136-145)
[2023-02-10] MEDS: Torsemide 100 MG TAB PO SCH (09:24)
[2023-02-10] MEDS: Metolazone 5 MG TAB PO SCH (09:24)
[2023-02-10] MEDS: Potassium Chloride 20 MEQ TAB PO SCH (09:24)
[2023-02-10] MEDS: NIFEdipine XL 60 MG ER.TAB PO SCH (09:24)
[2023-02-10] MEDS: Calcitriol 0.25 MCG CAP PO SCH (09:25)
[2023-02-10] MEDS: Heparin 5,000 UNITS/ML VIAL SC SCH (09:25)
[2023-02-10] MEDS: Spironolactone 100 MG TAB PO SCH (09:25)
[2023-02-10 11:23] VITALS: BP 133/70; TEMP 97.9
[2023-02-11] MEDS ORDERED: READ PPD TEST SITE PO SCH (09:00)
== END 2023-02-10 14:45 | disposition home or self-care (01) | DRG 673 ==
LOC: ERS 02:50 → CCU 06:10 → 2NO 02-07 15:50 → UNDODISIN 02-08 15:00
PROVIDERS: ADMIT Internal Medicine Cardiovascular Disease; ATTEND Family Medicine
PROC: 30233N1 Transfusion of Nonautologous Red Blood Cells into Peripheral Vein, Percutaneous Approach (ICD-10-PCS; 2023-01-30)
PROC: 30233J1 Transfusion of Nonautologous Serum Albumin into Peripheral Vein, Percutaneous Approach (ICD-10-PCS; 2023-01-30)
PROC: 5A09457 Assistance with Respiratory Ventilation, 24-96 Consecutive Hours, Continuous Positive Airway Pressure (ICD-10-PCS; 2023-01-30)
PROC: 06HY33Z Insertion of Infusion Device into Lower Vein, Percutaneous Approach (ICD-10-PCS; 2023-01-31)
PROC: 06HY33Z Insertion of Infusion Device into Lower Vein, Percutaneous Approach (ICD-10-PCS; 2023-01-31)
PROC: 02PAX3Z Removal of Infusion Device from Heart, External Approach (ICD-10-PCS; 2023-01-31)
PROC: 4A133R1 Monitoring of Arterial Saturation, Peripheral, Percutaneous Approach (ICD-10-PCS; 2023-02-02)
PROC: 3E043XZ Introduction of Vasopressor into Central Vein, Percutaneous Approach (ICD-10-PCS; 2023-02-02)
PROC: 0JH63XZ Insertion of Tunneled Vascular Access Device into Chest Subcutaneous Tissue and Fascia, Percutaneous Approach (ICD-10-PCS; 2023-02-08)
PROC: 02H633Z Insertion of Infusion Device into Right Atrium, Percutaneous Approach (ICD-10-PCS; 2023-02-08)
PROC: B5181ZA Fluoroscopy of Superior Vena Cava using Low Osmolar Contrast, Guidance (ICD-10-PCS; 2023-02-08)
PROC: 0TB13ZX Excision of Left Kidney, Percutaneous Approach, Diagnostic (ICD-10-PCS; principal; 2023-02-09)
DX: N17.9 Acute kidney failure, unspecified (principal); I21.A1 Myocardial infarction type 2; I50.31 Acute diastolic (congestive) heart failure; J96.01 Acute respiratory failure with hypoxia; R57.1 Hypovolemic shock; I13.2 Hypertensive heart and chronic kidney disease with heart failure and with stage 5 chronic kidney disease, or end stage renal disease; I16.1 Hypertensive emergency; G93.40 Encephalopathy, unspecified; E11.21 Type 2 diabetes mellitus with diabetic nephropathy; E11.40 Type 2 diabetes mellitus with diabetic neuropathy, unspecified; N18.6 End stage renal disease; N25.81 Secondary hyperparathyroidism of renal origin; E78.5 Hyperlipidemia, unspecified; E87.6 Hypokalemia; E87.70 Fluid overload, unspecified; I95.2 Hypotension due to drugs; E11.22 Type 2 diabetes mellitus with diabetic chronic kidney disease; E83.42 Hypomagnesemia; R60.1 Generalized edema; D63.1 Anemia in chronic kidney disease; E88.09 Other disorders of plasma-protein metabolism, not elsewhere classified; D64.9 Anemia, unspecified; E66.01 Morbid (severe) obesity due to excess calories; Z98.890 Other specified postprocedural states; Z82.49 Family history of ischemic heart disease and other diseases of the circulatory system; Z99.2 Dependence on renal dialysis; Z68.38 Body mass index [BMI] 38.0-38.9, adult
CPT/HCPCS: 36415; 36416; 36430; 36600; 50200; 71045; 76770; 77012; 80053; 80061; 80069; 80306; 81001; 82088; 82306; 82533; 82550; 82570; 82728; 82805; 83036; 83516; 83540; 83550; 83605; 83735; 83970; 84075; 84100; 84146; 84156; 84244; 84300; 84439; 84443; 84450; 84460; 84481; 84540; 85025; 85610; 85730; 86038; 86140; 86141; 86160; 86225; 86376; 86580; 86704; 86850; 86900; 86901; 87040; 88329; 90935; 93306; 93970; 94660; 96365; 96366; 96367; C1752; C9113; G0257; J0171; J1170; J1642; J1644; J1815; J1940; J2001; J2250; J2272; J2405; J2704; J2916; J2997; J3010; J3475; J3480; J3490; J7030; J7050; P9016; P9047; Q4081; S0020

== ENCOUNTER 2023-05-29 04:31 | Inpatient (IN) | payer OTHER ==
[2023-05-29] MEDS ORDERED: Furosemide 40 MG (4 mL) VIAL ONE (05:28)
[2023-05-29 05:34] LABS: #Eosinphils 0.1 thou/uL (0.0-0.7); #Monocytes 0.5 thou/uL (0.11-0.59); #Neutrophils 4.8 thou/uL (1.40-6.50); %Basophils 0.5 % (0.0-1.0); %Eosinophils 1.9 % (0.0-10.0); %Lymphocytes 24.6 % (21.0-51.0); %Monocytes 7.2 % (0.0-10.0); %Neutrophils 65.5 % (42.0-75.0); Hematocrit 24.4 % (36.0-47.0); Hemoglobin 7.9 g/dL (12.0-16.0); Mean Corpuscular HGB CONC 32.4 g/dL (32.0-36.0); Mean Corpuscular Hemoglobin 27.3 pg (27.0-31.0); Mean Corpuscular Volume 84.4 fl (78.0-98.0); Mean Platelet Volume 10.4 fL (7.4-10.4); Platelet Count 329 10x3/uL (130-400); RBC Distribution Width 12.8 % (11.5-14.5); Red Blood Cell (RBC) Count 2.89 mill/uL (4.20-5.40); White Blood Cell (WBC) Count 7.3 10x3/uL (4.8-10.8)
[2023-05-29 05:59] LABS: Phosphorus 5.2 mg/dL (2.3-4.7)
[2023-05-29 06:00] LABS: ALT (SGPT) 21 U/L (8-55); AST (SGOT) 22 U/L (5-34); Alkaline Phosphatase 124 U/L (40-110); Anion Gap 11 mmol/L (10-20); BUN (Urea Nitrogen) 55 mg/dL (7.0-18.7); Bilirubin, Total 0.4 mg/dL (0.2-1.2); Calc. Creatinine Clearance 0 mL/min (70-130); Calcium 8.5 mg/dL (7.8-10.44); Carbon Dioxide 18 mmol/L (22-29); Chloride 114 mmol/L (98-107); Estimated GFR 11; Glucose 102 mg/dL (70-105); Magnesium 2.2 mg/dL (1.6-2.6); Potassium 4.2 mmol/L (3.5-5.1); Sodium 139 mmol/L (136-145)
[2023-05-29 06:41] LABS: Troponin I 0.019 ng/mL (< 0.028)
[2023-05-29] MEDS ORDERED: Dextrose 5% in Water 1,000 ML IV PRN (07:32)
[2023-05-29] MEDS ORDERED: Dextrose 50% Abboject 50 ML SYRINGE SLOW IVP PRN (07:32)
[2023-05-29] MEDS ORDERED: Senokot S 8.6-50 MG TAB PO PRN (07:32)
[2023-05-29] MEDS ORDERED: Glucagon 1 MG/ML KIT IM PRN (07:32)
[2023-05-29 08:49] LABS: Iron 51 ug/dL (50-170); Iron Binding Capacity, Total 203 mcg/dL (265-497)
[2023-05-29] MEDS ORDERED: Sodium Bicarbonate Tab 325 MG TAB PO SCH (09:00)
[2023-05-29] MEDS ORDERED: Heparin 10,000 UNITS/ 10 ML VIAL ONE (09:11)
[2023-05-29 09:13] LABS: Troponin I 0.029 ng/mL (< 0.028)
[2023-05-29 09:28] LABS: HBSAg Index 0.17 S/CO (0-0.99); Hep B Core Total Ab Non-Reactive (NonReactive); Hep B Core Total Index 0.09 S/CO (0-0.79); Hep B Surf Ag Non-Reactive S/CO (NonReactive); Hep C IgG Ab Non-Reactive S/CO (NonReactive); Hep C Index 0.16 S/CO (0-0.79)
[2023-05-29] MEDS ORDERED: Famotidine 20 MG TAB ONE (09:28)
[2023-05-29] MEDS: Isosorbide Mononitrate 30 MG ER.TAB PO SCH (09:28)
[2023-05-29] MEDS: Famotidine 20 MG TAB PO SCH (09:28)
[2023-05-29] MEDS: NIFEdipine XL 60 MG ER.TAB PO SCH (09:29)
[2023-05-29 09:41] LABS: HBSAB Concentration 487.71 mIU/mL; Hep B Surf AB Reactive (NonReactive)
[2023-05-29 09:55] LABS: Bilirubin Negative (Negative); Blood, Urine 3+ (Negative); Clarity Clear (Clear); Glucose, Urine (Dipstick) 500 mg/dL (Negative); Ketone, Urine Negative (Negative); Leukocyte Negative Leu/uL (Negative); Nitrite Negative (Negative); Protein, Urine (Dipstick) 300 mg/dL (Neg-Trace); Specific Gravity, Urine 1.012 (1.002-1.036); Squamous Epithelial 0-3 HPF (0-3); Urobilinogen Normal mg/dL (Less than 2); pH, Urine 6.5 (5.0-9.0)
[2023-05-29 09:56] LABS: Bacteria/HPF 1+ HPF (None Seen)
[2023-05-29 10:05] LABS: INR-International Normal Ratio 1.1; PTT 38.2 sec (22.9-36.1)
[2023-05-29 10:32] LABS: Creatinine, Urine 23.13 mg/dL (47-110)
[2023-05-29 12:38] LABS: Troponin I 0.023 ng/mL (< 0.028)
[2023-05-29] MEDS: Acetaminophen 325 MG TAB PO PRN (17:05)
[2023-05-29] MEDS: EPOETIN ALFA-EPBX (ESRD) 10,000 UNITS/ML VIAL SC SCH (17:05)
[2023-05-30 05:57] LABS: #Basophils 0.1 thou/uL (0.0-0.2); #Eosinphils 0.1 thou/uL (0.0-0.7); #Monocytes 0.6 thou/uL (0.11-0.59); #Neutrophils 2.6 thou/uL (1.40-6.50); %Basophils 0.8 % (0.0-1.0); %Eosinophils 1.7 % (0.0-10.0); %Lymphocytes 45.5 % (21.0-51.0); %Monocytes 9.8 % (0.0-10.0); Hematocrit 22.2 % (36.0-47.0); Hemoglobin 7.1 g/dL (12.0-16.0); Mean Corpuscular Hemoglobin 26.6 pg (27.0-31.0); Mean Corpuscular Volume 83.1 fl (78.0-98.0); Mean Platelet Volume 10.1 fL (7.4-10.4); Platelet Count 289 10x3/uL (130-400); RBC Distribution Width 12.7 % (11.5-14.5); Red Blood Cell (RBC) Count 2.67 mill/uL (4.20-5.40); White Blood Cell (WBC) Count 6.1 10x3/uL (4.8-10.8)
[2023-05-30 06:27] LABS: ALT (SGPT) 14 U/L (8-55); AST (SGOT) 14 U/L (5-34); Albumin 2.6 g/dL (3.5-5.0); Alkaline Phosphatase 107 U/L (40-110); Anion Gap 9 mmol/L (10-20); BUN (Urea Nitrogen) 24 mg/dL (7.0-18.7); Bilirubin, Total 0.3 mg/dL (0.2-1.2); Calc. Creatinine Clearance 29 mL/min (70-130); Calcium 8.3 mg/dL (7.8-10.44); Carbon Dioxide 26 mmol/L (22-29); Chloride 106 mmol/L (98-107); Estimated GFR 19; Globulin 3.4 g/dL (2.4-3.5); Glucose 108 mg/dL (70-105); Potassium 3.4 mmol/L (3.5-5.1); Sodium 138 mmol/L (136-145)
[2023-05-30] MEDS: Furosemide 40 MG (4 mL) VIAL SLOW IVP SCH ×2 (06:45→17:21)
[2023-05-30] MEDS: Spironolactone 100 MG TAB PO SCH (08:41)
[2023-05-30 10:43] VITALS: BMI 27.8
[2023-05-30] MEDS ORDERED: Furosemide 100 MG (10 mL) VIAL SLOW IVP SCH (14:00)
[2023-05-30] MEDS ORDERED: fentaNYL PF 100 MCG/2 ML SYRINGE ONE (15:50)
[2023-05-30] MEDS ORDERED: Lidocaine 2% PF 5 ML VIAL ONE (15:50)
[2023-05-30] MEDS ORDERED: Rocuronium Bromide 10 MG/ML (10ML VIAL) ONE (15:50)
[2023-05-30] MEDS ORDERED: PROPOFOL 20 ML ONE (15:50)
[2023-05-30] MEDS ORDERED: SUCCINYLCHOLINE/SOD CL,ISO/PF 200 MG/10 ML SYRINGE FS ONE (15:56)
[2023-05-30] MEDS ORDERED: Heparin 10,000 UNITS/ 10 ML VIAL ONE (16:30)
[2023-05-30] MEDS ORDERED: Bupivacaine 0.25% HCL 30 ML VIAL ONE (16:31)
[2023-05-30] MEDS ORDERED: EPINEPHrine 1 MG/ML VIAL ONE (16:31)
[2023-05-30] MEDS ORDERED: Sodium Chloride 0.9% 100 ML ONE (16:41)
[2023-05-30] MEDS ORDERED: CEFAZOLIN 2 GM VIAL ONE (16:41)
[2023-05-30] MEDS ORDERED: Ondansetron PF 4 MG/2 ML Vial ONE (17:12)
[2023-05-30] MEDS ORDERED: Dexamethasone 4 mg/ml Vial ONE (17:12)
[2023-05-30] MEDS ORDERED: Morphine Sulfate 2 MG/ML SYRINGE SLOW IVP PRN (17:15)
[2023-05-30] MEDS ORDERED: Ondansetron HCl/PF 4 MG/2 ML Vial IVP PRN (17:15)
[2023-05-30] MEDS ORDERED: Meperidine HCl/PF 25 MG/ML VIAL SLOW IVP PRN (17:15)
[2023-05-30] MEDS ORDERED: SUGAMMADEX SODIUM 200 MG/2 ML VIAL ONE (17:17)
[2023-05-31 06:35] LABS: #Monocytes 0.6 thou/uL (0.11-0.59); #Neutrophils 5.2 thou/uL (1.40-6.50); %Basophils 0.5 % (0.0-1.0); %Lymphocytes 23.9 % (21.0-51.0); %Monocytes 8.1 % (0.0-10.0); %Neutrophils 67.2 % (42.0-75.0); Hematocrit 23.1 % (36.0-47.0); Hemoglobin 7.4 g/dL (12.0-16.0); Mean Corpuscular Hemoglobin 26.5 pg (27.0-31.0); Mean Corpuscular Volume 82.8 fl (78.0-98.0); Mean Platelet Volume 10.7 fL (7.4-10.4); Platelet Count 307 10x3/uL (130-400); RBC Distribution Width 12.6 % (11.5-14.5); Red Blood Cell (RBC) Count 2.79 mill/uL (4.20-5.40); White Blood Cell (WBC) Count 7.7 10x3/uL (4.8-10.8)
[2023-05-31] MEDS: Insulin Regular 300 UNITS/3 ML VIAL SC PRN (06:41)
[2023-05-31 06:56] LABS: Albumin 2.6 g/dL (3.5-5.0); Anion Gap 12 mmol/L (10-20); BUN (Urea Nitrogen) 32 mg/dL (7.0-18.7); BUN/Creatinine Ratio 6.87; Calc. Creatinine Clearance 21 mL/min (70-130); Carbon Dioxide 22 mmol/L (22-29); Chloride 107 mmol/L (98-107); Estimated GFR 12; Glucose 199 mg/dL (70-105); Phosphorus 4.3 mg/dL (2.3-4.7); Potassium 3.5 mmol/L (3.5-5.1); Sodium 137 mmol/L (136-145)
[2023-05-31] MEDS: Spironolactone 100 MG TAB PO SCH (10:48)
[2023-05-31] MEDS: Albumin 25% 25 GM (100 mL) BOT IVPB SCH (12:37)
[2023-06-01 07:32] LABS: Albumin 3.1 g/dL (3.5-5.0); Anion Gap 13 mmol/L (10-20); BUN (Urea Nitrogen) 40 mg/dL (7.0-18.7); BUN/Creatinine Ratio 7.84; Calc. Creatinine Clearance 19 mL/min (70-130); Calcium 8.1 mg/dL (7.8-10.44); Carbon Dioxide 23 mmol/L (22-29); Chloride 108 mmol/L (98-107); Estimated GFR 11; Glucose 131 mg/dL (70-105); Phosphorus 3.4 mg/dL (2.3-4.7); Potassium 3.5 mmol/L (3.5-5.1); Sodium 140 mmol/L (136-145)
[2023-06-01] MEDS: Isosorbide Mononitrate 60 MG ER.TAB PO SCH (08:58)
[2023-06-01] MEDS: Torsemide 20 MG TAB PO SCH (08:58)
[2023-06-01] MEDS: Spironolactone 100 MG TAB PO SCH (08:58)
[2023-06-01] MEDS: Metolazone 2.5 MG TAB PO SCH (08:58)
[2023-06-01] MEDS ORDERED: Heparin 10,000 UNITS/ 10 ML VIAL ONE (09:42)
[2023-06-01 19:43] VITALS: BP 156/79; TEMP 98.1
== END 2023-06-01 19:52 | disposition home or self-care (01) | DRG 673 ==
LOC: ERS 04:31 → ERHOLD 05:32 → 2SW 12:16 → OBSVTOIN 05-30 06:53
PROVIDERS: ADMIT Internal Medicine; ATTEND Internal Medicine
PROC: 0WHG33Z Insertion of Infusion Device into Peritoneal Cavity, Percutaneous Approach (ICD-10-PCS; principal; 2023-05-30)
PROC: 3E1M39Z Irrigation of Peritoneal Cavity using Dialysate, Percutaneous Approach (ICD-10-PCS; 2023-05-30)
PROC: 3E033XZ Introduction of Vasopressor into Peripheral Vein, Percutaneous Approach (ICD-10-PCS; 2023-05-30)
PROC: 0JH83XZ Insertion of Tunneled Vascular Access Device into Abdomen Subcutaneous Tissue and Fascia, Percutaneous Approach (ICD-10-PCS; 2023-05-30)
PROC: 30233J1 Transfusion of Nonautologous Serum Albumin into Peripheral Vein, Percutaneous Approach (ICD-10-PCS; 2023-05-31)
DX: N17.9 Acute kidney failure, unspecified (principal); I50.33 Acute on chronic diastolic (congestive) heart failure; J96.00 Acute respiratory failure, unspecified whether with hypoxia or hypercapnia; I13.2 Hypertensive heart and chronic kidney disease with heart failure and with stage 5 chronic kidney disease, or end stage renal disease; E87.20 Acidosis, unspecified; N18.6 End stage renal disease; N25.81 Secondary hyperparathyroidism of renal origin; I16.0 Hypertensive urgency; Z99.2 Dependence on renal dialysis; D63.1 Anemia in chronic kidney disease; Z82.49 Family history of ischemic heart disease and other diseases of the circulatory system; E10.22 Type 1 diabetes mellitus with diabetic chronic kidney disease; Z79.899 Other long term (current) drug therapy
CPT/HCPCS: 36415; 36416; 71045; 80053; 80069; 81001; 82570; 82728; 83540; 83550; 83735; 84100; 84156; 84300; 85025; 85610; 85730; 86704; 90935; 96374; 96376; C1750; G0257; G0378; J0171; J0665; J1100; J1644; J1815; J1940; J2001; J2405; J2704; J3490; P9047; Q5105

== ENCOUNTER 2025-03-13 16:35 | Observation (INO) | payer MEDICARE, MEDICAID ==
[~2025-03-13 16:35] MED LIST: Iopamidol-370 76% 500 ML MDV (1 ML CHARGE) ONE
[2025-03-13 17:31] LABS: #Basophils 0.04 10x3/uL (0.0-0.2); #Eosinophils 0.14 10x3/uL (0.0-0.7); #Monocytes 0.90 10x3/uL (0.11-0.59); #Neutrophils 7.33 10x3/uL (1.40-6.50); %Basophils 0.4 % (0.0-1.0); %Eosinophils 1.3 % (0.0-10.0); %Lymphocytes 19.5 % (21.0-51.0); %Monocytes 8.4 % (0.0-10.0); %Neutrophils 68.8 % (42.0-75.0); Hematocrit 27.7 % (36.0-47.0); Hemoglobin 8.9 g/dL (12.0-16.0); Mean Corpuscular Hemoglobin 27.6 pg (27.0-31.0); Mean Corpuscular Volume 86.0 fL (78.0-98.0); Platelet Count 329 10x3/uL (130-400); Red Blood Cell (RBC) Count 3.22 mill/uL (4.20-5.40); White Blood Cell (WBC) Count 10.66 10x3/uL (4.8-10.8)
[2025-03-13 17:51] LABS: ALT (SGPT) 29 U/L (Less than 34); AST (SGOT) 26 U/L (11-34); Albumin 2.6 g/dL (3.1-4.5); Alkaline Phosphatase 176 U/L (40-110); Anion Gap 13 mmol/L (10-20); BHCG - Serum Negative (NEGATIVE); BUN (Urea Nitrogen) 52 mg/dL (7.0-18.7); Bilirubin, Total 0.3 mg/dL (0.3-1.2); Calc. Creatinine Clearance 0 mL/min (70-130); Calcium 8.3 mg/dL (7.8-10.44); Carbon Dioxide 27 mmol/L (22-29); Chloride 100 mmol/L (98-107); Globulin 3.7 g/dL (2.4-3.5); Glucose 152 mg/dL (70-105); Lipase 146 U/L (8-78); Magnesium 1.6 mg/dL (1.6-2.6); Potassium 3.4 mmol/L (3.5-5.1); Pregs Control Background? CLEAR/WHITE (CLR/WHITE); Pregs Control Bar Appear? YES (CONTROL BAR); Sodium 137 mmol/L (136-145)
[2025-03-13 20:02] LABS: Bacteria/HPF None Seen HPF (None Seen); CAUTI Indications for Culture Pelvic or flank pain; Glucose, Urine (Dipstick) 150 mg/dL (Negative); Leukocyte Negative Leu/uL (Negative); Protein, Urine (Dipstick) 100 mg/dL (Neg-Trace); RBC/HPF 0-3 HPF (0-3); Specific Gravity, Urine 1.007 (1.002-1.036); WBC/HPF None Seen HPF (0-3)
[2025-03-13 20:09] LABS: Urine Culture Reflex No No
[2025-03-13] MEDS ORDERED: Aspirin Chewable 81 MG TAB ONE (21:52)
[2025-03-13] MEDS ORDERED: Ondansetron PF 4 MG/2 ML Vial IVP PRN (22:45)
[2025-03-13] MEDS ORDERED: Acetaminophen 325 MG TAB PO PRN (22:45)
[2025-03-13] MEDS ORDERED: Dextrose 50% Abboject 50 ML SYRINGE SLOW IVP PRN (23:37)
[2025-03-13] MEDS ORDERED: Glucagon 1 MG/ML KIT IM PRN (23:37)
[2025-03-14 00:13] VITALS: BMI 29.4
[2025-03-14 06:20] LABS: #Basophils 0.05 10x3/uL (0.0-0.2); #Eosinophils 0.16 10x3/uL (0.0-0.7); #Monocytes 0.88 10x3/uL (0.11-0.59); #Neutrophils 7.29 10x3/uL (1.40-6.50); %Basophils 0.5 % (0.0-1.0); %Eosinophils 1.6 % (0.0-10.0); %Lymphocytes 18.0 % (21.0-51.0); %Monocytes 8.5 % (0.0-10.0); %Neutrophils 70.6 % (42.0-75.0); Hematocrit 27.5 % (36.0-47.0); Hemoglobin 8.8 g/dL (12.0-16.0); Mean Corpuscular Hemoglobin 27.6 pg (27.0-31.0); Mean Corpuscular Volume 86.2 fL (78.0-98.0); Platelet Count 325 10x3/uL (130-400); Red Blood Cell (RBC) Count 3.19 mill/uL (4.20-5.40); White Blood Cell (WBC) Count 10.32 10x3/uL (4.8-10.8)
[2025-03-14 06:31] LABS: Anion Gap 15 mmol/L (10-20); BUN (Urea Nitrogen) 50 mg/dL (7.0-18.7); Calc. Creatinine Clearance 11 mL/min (70-130); Calcium 8.4 mg/dL (7.8-10.44); Carbon Dioxide 25 mmol/L (22-29); Chloride 101 mmol/L (98-107); Glucose 130 mg/dL (70-105); Magnesium 1.4 mg/dL (1.6-2.6); Potassium 3.0 mmol/L (3.5-5.1); Sodium 138 mmol/L (136-145)
[2025-03-14] MEDS: Metoprolol Succinate XL 100 MG ER.TAB PO SCH (07:00)
[2025-03-14 07:41] VITALS: TEMP 98
[2025-03-14] MEDS ORDERED: Sucroferric Oxyhydroxide [Velphoro] 500 MG Tab.Chew PO SCH (08:00)
[2025-03-14] MEDS: Magnesium 2 GM/50 ML(in water) 2 GM in Premix 1 BAG IVPB SCH ×2 (08:45→11:32)
[2025-03-14] MEDS: Rosuvastatin 10 MG TAB PO SCH (08:46)
[2025-03-14] MEDS: Aspirin Chewable 81 MG TAB PO SCH (08:46)
[2025-03-14] MEDS: Ferrous Sulfate 325 MG TAB PO SCH (08:46)
[2025-03-14 11:02] LABS: Cocaine Metabolite Screen Negative (Negative); THC/Cannabinoid Screen Negative (Negative); Tricyclic Screen Negative (Negative)
[2025-03-14 14:05] VITALS: BP 135/72
[2025-03-14] MEDS ORDERED: Metoprolol Succinate XL 100 MG ER.TAB PO SCH (21:00)
[2025-03-17] MEDS ORDERED: PNEUMOC 20-VAL CONJ-DIP CRM/PF 0.5 ML SYRINGE IM ONE (09:00)
[2025-03-17] MEDS ORDERED: FLU (Fluarix Triv) 25-26 (6MOS UP)/PF 45 MCG/0.5 ML Syringe IM ONE (09:00)
== END 2025-03-14 14:00 | disposition home or self-care (01) ==
LOC: ERS 16:35 → OBS 22:28
PROVIDERS: ADMIT Internal Medicine; ATTEND Family Medicine
DX: I5A Non-ischemic myocardial injury (non-traumatic) (principal); I25.10 Atherosclerotic heart disease of native coronary artery without angina pectoris; I12.0 Hypertensive chronic kidney disease with stage 5 chronic kidney disease or end stage renal disease; E11.22 Type 2 diabetes mellitus with diabetic chronic kidney disease; N18.6 End stage renal disease; K66.8 Other specified disorders of peritoneum; E87.6 Hypokalemia; E78.5 Hyperlipidemia, unspecified; E83.42 Hypomagnesemia; D64.9 Anemia, unspecified; N25.81 Secondary hyperparathyroidism of renal origin; Z79.4 Long term (current) use of insulin; Z79.82 Long term (current) use of aspirin; Z79.899 Other long term (current) drug therapy; Z95.5 Presence of coronary angioplasty implant and graft; Z99.2 Dependence on renal dialysis
CPT/HCPCS: 71045; 71275; 74177; 80048; 80306; 81001; 82962; 83690; 83735 ×2; 83880; 84484 ×4; 84703; 85025; 85379; 93005; 96365; 96366; 99285; G0378 ×2; J3475; Q9967; 36415; 36416; 80053; 84443